=== PATIENT | male | born 1955 | race Caucasian/White ===

== ENCOUNTER → 2018-12-11 | Outpatient (CLI) | payer MEDICARE, OTHER ==
[2015-09-22 21:50] VITALS: BP 115/58
[~2018-12-11] MED LIST: ASPI325T8 PO; ATOR40TA59 PO; CLOP75TA57 PO; EZET1TAB35 PO; FURO40TA4 PO; LANS30CA PO; LISI-338 PO; POTA20TA82 PO; RANO500T2 PO; REGADENOSON 0.4 MG/5 ML DISP.SYRIN. IV ONE; SOTA80TA48 PO
--- NOTE | 2018-12-11 11:36 | CARD ---
MR#: [id number] Date of Study: 12/11/2018 Ordering Physician: PAULINA BAGLEY, Referring Physician: PAULINA BAGLEY, Tech: Jazlyn Parham LAVERNE APPROVED REPORT EXAM: Two-dimensional and M-mode echocardiogram with Doppler and color Doppler. Other Information Quality : GoodHR: 60bpm Rhythm : NSR INDICATION Cardiomyopathy 2D DIMENSIONS RVDd3.0 (2.9-3.5cm)Left Atrium(2D)5.5 (1.6-4.0cm) IVSd1.3 (0.7-1.1cm)Aortic Root(2D)3.4 (2.0-3.7cm) LVDd7.2 (3.9-5.9cm)LVOT Diameter2.3 (1.8-2.4cm) PWd1.1 (0.7-1.1cm)LVDs6.6 (2.5-4.0cm) FS (%) 8.3 %SV48.4 ml LVEF(%)17.8 (>50%) M-Mode DIMENSIONS Left Atrium(MM)5.86 (2.5-4.0cm)Aortic Root3.60 (2.2-3.7cm) Aortic Valve AoV Peak Dominik.141.6cm/sAoV VTI28.6cm AO Peak GR.8.0mmHgLVOT Peak Dominik.85.2cm/s AO Mean GR.4mmHgAVA (VMAX)2.45cm2 MINERVA (VTI)2.03pj4AI P 1/2 Dfsy397nk Mitral Valve MV E Mpjtjnid62.2cm/sMV DECEL FRGW395kz MV A Vmqtcdej53.5cm/sE/A Ratio1.3 MV A Egyqusbp400jo Pulmonary Valve PV Peak Ktdxrxbe71.2cm/s Pulmonary Vein S1 Mrkjewkg25.0cm/sD2 Jsyihzou22.2cm/s PVa rkfhoyjm45pbfz LEFT VENTRICLE The Left Ventricle is moderately dilated. There is mild concentric left ventricular hypertrophy. The left ventricular systolic function is severely impaired. The Ejection Fraction is 20-25%. There is gl obal hypokinesis of the left ventricle. RIGHT VENTRICLE The right ventricle is normal size. There is normal right ventricular wall thickness. Systolic functi on is mildly reduced. ATRIA The left atrium is moderately dilated. The right atrium is moderately dilated. The interatrial septum is intact with no evidence for an atrial septal defect or patent foramen ovale as noted on 2-D or Do ppler imaging. AORTIC VALVE The aortic valve is normal in structure and function. The aortic valve is trileaflet. Doppler and Col or Flow revealed mild to moderate aortic regurgitation. There is no significant aortic valvular steno sis. MITRAL VALVE The mitral valve is normal in structure and function. There is no evidence of mitral valve prolapse. There is no mitral valve stenosis. Doppler and Color-flow revealed mild mitral regurgitation. TRICUSPID VALVE The tricuspid valve is normal in structure and function. Doppler and Color Flow revealed trace tricus pid valve regurgitation. There is no tricuspid valve prolapse or vegetation. There is no tricuspid va lve stenosis. PULMONIC VALVE Pulmonic valve is not well visualized. GREAT VESSELS The aortic root is normal in size. The ascending aorta is normal in size. PERICARDIAL EFFUSION There is no evidence of significant pericardial effusion. Critical Notification Critical Value: No <Conclusion> The left ventricular systolic function is severely impaired. The Ejection Fraction is 20-25%. The left atrium is moderately dilated. Mild to moderate aortic regurgitation. Mild mitral regurgitation. Trace tricuspid valve regurgitation. There is no evidence of significant pericardial effusion. Signed by : Joey Artis, Electronically Approved : 12/11/2018 11:34:07
--- NOTE | 2018-12-11 14:17 | RAD ---
MR#: [id number] Date of Study: 12/11/2018 Ordering Physician: PAULINA TELLES, Referring Physician: HARLEY RENTERIA Tech: RT Alex (R) (N) APPROVED REPORT Test Type: Pharmacological Stress Nurse/Tech: Carol Kaufman RN Test Indications: ischemic cardiomyopathy Cardiac History: Hypertension,smoker,CABG x3 in ,pacemaker Medications: See Electronic Medical Record Medical History: See Electronic Medical Record Resting ECG: Paced rhythm Resting Heart Rate: 68 bpm Resting Blood Pressure: 110/63mmHg Pretest Chest Pain: No chest pain Nurse/Tech Notes S1,S2-pacemaker. Lungs diminished throughout. Consent: The procedure was explained to the patient in lay terms. Informed consent was witnessed. Miguelito eout was entered into [email or web address]. History and Stress Test performed by RT Len (R) (N) Pharm. Details Pharmacologic stress testing was performed using 0.4mg per 5ml of regadenoson given intravenously ove r 7-10 seconds. Stress Symptoms Dizziness POST EXERCISE Reason for Termination: Infusion complete Target HR: No Max HR: 88 bpm Max Blood Pressure: 117/47mmHg Blood Pressure response to exercise: Normal blood pressure response during stress. Heart Rate response to exercise: WNL Chest Pain: No. Arrhythmia: No. ST Change: No. INTERPRETATION Stress EKG Conclusion: A-paced with underlying IVCD in a LBBB format. Imaging Protocol IMAGE PROTOCOL: Rest Tc-99m/stress Tc-99m 1 day Rest: Stress: Viability: Radiopharm.Tc99m LxsfksmtzJz55k Sestamibi Dose9.1mCi 33.2mCi Duration 13min. 13min. Img Date 12/11/2018 12/11/2018 Inj-Img Cwpt59gqx. 60min. Rest Admin Site:IV - Right AntecubitalAdministrator:EVERETT Fitzpatrick, ARRT (R)(N) Stress Admin Site: IV - Right AntecubitalAdministrator: RT Jaciel HarringtonR)(N) STRESS DATA End Diast. Vol.314.0mlLVEDV index VCE680.0ml End Syst. Vol.260.0mlLVESV index QIZ910.0ml Myocardial Xkuo072.0gEject. Fwsuoaae28.0% Stress Scores Regional WT3.00Summed WT49.00 Regional WM3.00Summed WM48.00 LV Perfusion There is a large sized, severe in intensity FIXED mid to distal septal, anterior, apical defect sugge stive of prior infarct in the LAD territory There is a large szied, severe in intensity FIXED basal to distal inferior wall defect suggestive of prior infarct. Wall Motion Severe LV dysfunction. EF 17%. LV Perf. Quant 17 Seg. SSS30.00 17 Seg. SRS35.00 17 Seg. SDS1.00 Stress Defect Extent (% LAD)60.00Rest Defect Extent (% LAD)55.60Rev. Defect Extent (% LAD)6.30 Stress Defect Extent (% LCX) 32.50Rest Defect Extent (% LCX)43.80Rev. Defect Extent (% LCX)0.00 Stress Defect Extent (% RCA)57.80Rest Defect Extent (% RCA)77.80Rev. Defect Extent (% RCA)0.00 Stress Defect Extent (% EDITA)53.90Rest Defect Extent (% EDITA)58.90Rev. Defect Extent (% EDITA)2.20 Other Information Quality:Average Risk Assessment: High Risk Conclusion 1. Non-diagnostic baseline EKG due to atrial pacing and underlying LBBB morphology 2. Large prior anterior/inferior defects, FIXED. No ischemia. 3. Severe LV dysfunction. EF 17% 4. High risk for future CV events. Signed by : Paulina Telles, Electronically Approved : 12/11/2018 14:15:00
== END | disposition home or self-care (01) ==
LOC: NM 08:27
PROVIDERS: ATTEND Internal Medicine Cardiovascular Disease
DX: I08.0 Rheumatic disorders of both mitral and aortic valves (principal); I25.5 Ischemic cardiomyopathy; I44.7 Left bundle-branch block, unspecified; I11.9 Hypertensive heart disease without heart failure; F17.200 Nicotine dependence, unspecified, uncomplicated; Z95.1 Presence of aortocoronary bypass graft; Z95.0 Presence of cardiac pacemaker
CPT/HCPCS: 78452; 93017; 93306; 96374; A9500; J2785

== ENCOUNTER 2020-11-14 11:12 | Inpatient (IN) | payer MEDICARE ==
[~2020-11-14] VITALS: Ht 170.2 cm; Wt 97.9 kg
[~2020-11-14 11:12] MED LIST changes: +AMIO200T6 PO; +AMIO400T5 PO; +ASPI-630 PO; +FURO-68 PO; -LISI-338 PO; +LISI-517 PO; +METO-239 PO; +METO-247 PO; +POTA10TA12 PO; +POTA20TA4 PO; -POTA20TA82 PO; -REGADENOSON 0.4 MG/5 ML DISP.SYRIN. IV ONE; +SACU1TAB7 PO; +SPIR25TA5 PO
[2020-11-14 11:46] LABS: BASO # 0.1 x10^3/uL (0.0-0.2); BASO % 1 % (0-3); EOS # 0.3 x10^3/uL (0.0-0.7); EOS % 5 % (0-3); HEMATOCRIT 44.6 % (39.0-53.0); HEMOGLOBIN 14.7 g/dL (13.0-17.5); LYMPH # 1.6 x10^3/uL (1.0-4.8); LYMPH % 25 % (24-48); MEAN CORPUSCULAR HEMOGLOBIN 31 pg (25-35); MEAN CORPUSCULAR HGB CONC 33 g/dL (31-37); MEAN CORPUSCULAR VOLUME 93 fL (79-100); MONO # 0.8 x10^3/uL (0.0-1.1); MONO % 12 % (0-9); NEUT # 3.7 x10^3/uL (1.8-7.7); NEUT % 56 % (31-73); PLATELET COUNT 222 x10^3/uL (140-400); RED BLOOD COUNT 4.78 x10^6/uL (4.30-5.70); RED CELL DISTRIBUTION WIDTH 15.4 % (11.5-14.5); WHITE BLOOD COUNT 6.5 x10^3/uL (4.0-11.0)
--- NOTE | 2020-11-14 11:50 | RAD ---
EXAM: Chest, single view. HISTORY: Palpitations. COMPARISON: 09/25/2020 FINDINGS: A frontal view of the chest is obtained. There is diffuse increased interstitial opacity. T here is no consolidation, pleural effusion or pneumothorax. There is a stable prominent cardiac silho uette. There are median sternotomy changes. There is a cardiac pacemaker defibrillator unchanged in p osition. IMPRESSION: Stable diffuse interstitial prominence likely due to interstitial infiltrate. Electronically signed by: Mandie Aragon MD (11/14/2020 11:47 AM) [facility]
[2020-11-14 12:04] LABS: CALCIUM 9.3 mg/dL (8.5-10.1); CREATININE 1.5 mg/dL (0.7-1.3); GFR 46.7; POTASSIUM 4.5 mmol/L (3.5-5.1)
[2020-11-14 12:05] LABS: MAGNESIUM 2.2 mg/dL (1.8-2.4)
--- NOTE | 2020-11-14 13:31 | ED.ADGEN ---
Past Medical History Past Medical History: High Cholesterol, Heart Disease, Hypertension, [place] Past Surgical History: Coronary Bypass Surgery, Pacemaker Additional Past Surgical Histo: defibrilator Smoking Status: Current Every Day Smoker Alcohol Use: Occasionally Drug Use: None General Adult EDM: Chief Complaint: Palpitations HPI: HPI: Patient is a 65-year-old male who presents to the emergency room complaining of being shocked by his pacemaker. Patient states that afterwards he got really dizzy and he felt like he was going to get shocked again but did not. He felt fine prior to the shock. He follows with Dr. Elfego talley for his cardiac disease. This is happened to him 1 other time a month ago and he was admitted at that time and had a cath done that was normal. He has a follow-up appointment with cardiology next week. He denies any chest pain, shortness of breath, URI symptoms, fever, nausea, vomiting. He states his dizziness is better. Review of Systems: Review of Systems: Complete ROS is negative unless otherwise documented in HPI Current Medications: Current Medications Medications (Trade) Dose Ordered Sig/Angelo Start Time Stop Time Status Last Admin Dose Admin Amiodarone HCl (Cordarone) 400 mg 1X ONCE 11/14/20 14:45 11/14/20 14:46 11/14/20 14:26 400 MG Allergies: Allergies: Allergies Coded Allergies Type Severity Reaction Last Updated Verified No Known Drug Allergies 02/20/14 No Physical Exam: PE: General: Awake, alert, NAD. Well Nourished, well hydrated. Cooperative HEENT: Atraumatic, EOMI, PERRL, airway patent, moist oral mucosa Neck: Supple, trachea midline Respiratory: CTA bilaterally, normal effort, no wheezing/crackles CV: RRR, no murmur, cap refill <2 GI: Soft, nondistended, nontender, no masses MSK: No obvious deformities Skin: Warm, dry, intact Neuro: A&O x3, speech NL, sensory and motor grossly intact, no focal deficits Psych: Normal affect, normal mood, not suicidal or homicidal Current Patient Data: Labs: Laboratory Tests Test 11/14/20 11:11 White Blood Count 6.5 x10^3/uL (4.0-11.0) Red Blood Count 4.78 x10^6/uL (4.30-5.70) Hemoglobin 14.7 g/dL (13.0-17.5) Hematocrit 44.6 % (39.0-53.0) Mean Corpuscular Volume 93 fL (79-100) Mean Corpuscular Hemoglobin 31 pg (25-35) Mean Corpuscular Hemoglobin Concent 33 g/dL (31-37) Red Cell Distribution Width 15.4 % (11.5-14.5) H Platelet Count 222 x10^3/uL (140-400) Neutrophils (%) (Auto) 56 % (31-73) Lymphocytes (%) (Auto) 25 % (24-48) Monocytes (%) (Auto) 12 % (0-9) H Eosinophils (%) (Auto) 5 % (0-3) H Basophils (%) (Auto) 1 % (0-3) Neutrophils # (Auto) 3.7 x10^3/uL (1.8-7.7) Lymphocytes # (Auto) 1.6 x10^3/uL (1.0-4.8) Monocytes # (Auto) 0.8 x10^3/uL (0.0-1.1) Eosinophils # (Auto) 0.3 x10^3/uL (0.0-0.7) Basophils # (Auto) 0.1 x10^3/uL (0.0-0.2) Sodium Level 138 mmol/L (136-145) Potassium Level 4.5 mmol/L (3.5-5.1) Chloride Level 103 mmol/L (98-107) Carbon Dioxide Level 29 mmol/L (21-32) Anion Gap 6 (6-14) Blood Urea Nitrogen 22 mg/dL (8-26) Creatinine 1.5 mg/dL (0.7-1.3) H Estimated GFR (Cockcroft-Gault) 46.7 Glucose Level 100 mg/dL (70-99) H Calcium Level 9.3 mg/dL (8.5-10.1) Magnesium Level 2.2 mg/dL (1.8-2.4) Troponin I Quantitative < 0.017 ng/mL (0.000-0.055) Laboratory Tests 11/14/20 11:11 Laboratory Tests 11/14/20 11:11 Vital Signs: Vital Signs Date Time Temp Pulse Resp B/P (MAP) Pulse Ox O2 Delivery O2 Flow Rate FiO2 11/14/20 14:26 75 97/52 11/14/20 11:14 97.8 21 93 Room Air 97.8 EKG: EKG: [] Heart Score: Risk Factors: Risk Factors: DM, Current or recent (<one month) smoker, HTN, HLP, family history of CAD, obesity. Risk Scores: Score 0 - 3: 2.5% MACE over next 6 weeks - Discharge Home Score 4 - 6: 20.3% MACE over next 6 weeks - Admit for Clinical Observation Score 7 - 10: 72.7% MACE over next 6 weeks - Early Invasive Strategies Radiology/Procedures: Radiology/Procedures: [] Course & Med Decision Making: Course & Med Decision Making Pertinent Labs and Imaging studies reviewed. (See chart for details) Patient is a 65-year-old male who presents to the emergency room after being shocked by his pacemaker. Pacemaker was interrogated and patient had an episode of ventricular tachycardia which is similar to what brought him in in September. Lab work is unremarkable. I discussed the case with Dr Garcia and Dr Calixto. At this time patient will be given loading dose of amiodarone and admitted to the [facility]. Dragon Disclaimer: Dragon Disclaimer: This electronic medical record was generated, in whole or in part, using a voice recognition dictation system. Departure Departure Impression: Primary Impression: Ventricular tachycardia Referrals: MILI GARCIA MD (PCP) SHANNAN DIEHL MD Nov 14, 2020 13:31
[2020-11-14] MEDS ORDERED: AMIODARONE HCL 200 MG TABLET. PO ONE (14:45)
--- NOTE | 2020-11-14 17:37 | EKG ---
[facility] [address] [place] [address] Test Date: 2020-11-14 Test Time: 11:19:54 Pat Name: ADITHYA JARAMILLO Department: Room: ED HOLD 23 Gender: M Liner Reroll Tender: : 1955 Requested By: SHANNAN DIEHL Order Number: [id number] Reading MD: Joey Artis Measurements Intervals [place] Rate: 87 P: [place]: QRS: 64 QRSD: 132 T: -68 QT: 398 QTc: 480 Interpretive Statements ATRIAL PACED RHYTHM VENTRICULAR PREMATURE COMPLEX(ES) NON SPECIFIC INTRAVENTRICULAR BLOCK ABNORMAL ECG Electronically Signed On 11-18-2020 14:04:46 TECHNICAL INSTRUCTOR COURSE DEVELOPER by Joey Artis
[2020-11-14 18:24] VITALS: BP 103/55
[2020-11-14] MEDS ORDERED: FURO40TA4 PO (20:41)
[2020-11-14] MEDS ORDERED: POTA20TA4 PO (20:41)
[2020-11-14 22:20] VITALS: BP 110/54
[2020-11-14] MEDS: AMIODARONE HCL 200 MG TABLET. PO SCH (23:21)
[2020-11-15 03:31] VITALS: BP 88/37
[2020-11-15 07:00] VITALS: BP 97/55
[2020-11-15] MEDS: AMIODARONE HCL 200 MG TABLET. PO SCH ×2 (08:43→21:11)
[2020-11-15 11:00] VITALS: BP 87/41
[2020-11-15] MEDS: SPIRONOLACTONE 25 MG TABLET PO SCH (13:00)
[2020-11-15] MEDS: RANOLAZINE 500 MG TAB.ER.12H PO SCH ×2 (13:00→21:09)
[2020-11-15] MEDS: METOPROLOL SUCC 24HR ER 25 MG TAB.ER.24H. PO SCH (13:00)
[2020-11-15] MEDS ORDERED: ATORVASTATIN CALCIUM 40 MG TABLET. PO SCH (13:00)
[2020-11-15] MEDS: POTASSIUM CHLORIDE 20 MEQ TABLET.ER. PO SCH (13:00)
[2020-11-15] MEDS: SACUBITRIL/VALSARTAN 49/51MG TABLET. PO SCH ×2 (13:00→21:10)
[2020-11-15] MEDS: PANTOPRAZOLE 40 MG TABLET.DR. PO SCH (13:31)
[2020-11-15] MEDS: CLOPIDOGREL BISULFATE 75 MG TABLET PO SCH (13:31)
[2020-11-15] MEDS: ASPIRIN CHEWABLE 81 MG TABLET. PO SCH (13:32)
--- NOTE | 2020-11-15 13:56 | HP ---
ADMIT DATE: 11/15/2020 CHIEF COMPLAINT AND HISTORY OF PRESENT ILLNESS: This 65-year-old white male is well known to me in followup in the office. The patient presented to the Emergency Room after his defibrillator went off. He was feeling dizzy and remembers getting shocked. He feels like he was feeling fine prior to the shock other than the dizziness. He... DICTATION ENDS HERE MILI BELTRAN MD DR: TARA/sharri JOB#: [id number] / [id number]
[2020-11-15] MEDS: FUROSEMIDE 40 MG TABLET. PO SCH (14:00)
[2020-11-15 15:00] VITALS: BP 108/66
--- NOTE | 2020-11-15 15:03 | HP ---
ADMIT DATE: 11/15/2020 CHIEF COMPLAINT AND HISTORY OF PRESENT ILLNESS: This 65-year-old white male admitted through the Emergency Room after a defibrillator discharge and he was feeling dizzy. This has happened recently where he had been hospitalized, had a heart cath showing no amenable treatment at that time. PAST MEDICAL HISTORY: Remarkable for ischemic cardiomyopathy, history of V-tach, hyperlipidemia, atherosclerotic heart disease, hypertension, [place]. He has a pacemaker as well as a defibrillator. He has had coronary artery bypass surgery. MEDICATIONS: Brought with the patient, listed on the computer and have been addressed. ALLERGIES: There is no drug allergies. SOCIAL HISTORY: He is a current every day smoker. Has alcohol on occasion. Denies drug use. Lives at home with his . FAMILY HISTORY: Noncontributory. REVIEW OF SYSTEMS: Remarkable for him feeling fairly close to his baseline leading up to this. Denies any significant symptoms of angina ____ on a regular basis. PHYSICAL EXAMINATION: GENERAL: He is a well-developed, well-nourished white male in no acute distress. is at the bedside. VITAL SIGNS: Stable. He is afebrile. Blood pressure is on the low side. This is his baseline. HEAD, EYES, EARS, NOSE AND THROAT: Unremarkable. NECK: Supple without adenopathy or thyromegaly. CHEST: Clear to auscultation and percussion. HEART: Regular rate and rhythm without S3, S4 or murmur. ABDOMEN: Soft, nontender, without hepatosplenomegaly or masses. EXTREMITIES: Without cyanosis, clubbing, edema. NEUROLOGIC: He is intact. LABORATORY DATA: Initial labs included CBC that is unremarkable. He has a BMP showing a creatinine of 1.5. Troponin is negative. Electrolytes including magnesium were all within normal limits. Interrogation of his defibrillator shows that this was an episode of V-tach and he has actually had 2-3 others recently that he was unaware of. IMPRESSION: 1. Ventricular tachycardia with appropriate defibrillator discharge. 2. Ischemic cardiomyopathy. 3. Other problems listed above. PLAN: The patient has been admitted. He will be watched on Telemetry. Cardiology has been consulted to give suggestions regarding antiarrhythmic therapy and the patient will be monitored, managed and treated appropriately. MLII A. APPL, MD DR: TARA/sharri JOB#: [id number] / [id number]
--- NOTE | 2020-11-15 16:30 | PDOC2 ---
CONSULT Date of Consult Date of Consult DATE: 11/15/20 TIME: 16:21 Reason for Consult Reason for Consult: Ventricular tachycardia Referring Physician Referring Physician: Dr. Garcia Identification/Chief Complaint Chief Complaint Discharges of his ICD Source Source: Chart review, Patient History of Present Illness Reason for Visit: The patient is a 65-year-old male with a history of an ischemic cardiomyopathy and an implantable defibrillator. He came to the emergency room the last evening due to recurrent episodes of discharges from his ICD. Initial in terrogation showed several discharges over the past 3 days. The patient reports mild dizziness but no episodes of syncope or near syncope. He was admitted to the hospital in September for similar episodes. A cardiac catheterization at that time showed three-vessel coronary artery disease. 2 of his 3 grafts were patent including a ALEXANDER graft to the LAD and a radial graft to the LP L. A previously placed vein graft to the right coronary was occluded. His ejection fraction was decreased at 20%. At that time he was started on amiodarone. He has done relatively well for 3 to 4 weeks but as noted above has had recurrence of his ventricular tachycardia. He denies chest pain other than the discomfort of the discharges. He denies shortness of breath. After discussion with the ER doctors last night his amiodarone was increased to 400 mg twice daily. Past Medical History Cardiovascular: AFIB, CAD, CHF, HTN, Hyperlipidemia, Other Pulmonary: COPD CENTRAL NERVOUS SYSTEM: Other Musculoskeletal: Osteoarthritis Past Surgical History Past Surgical History: CABG, Other (ICD placement.) Family History Family History: Heart Disease Social History <1 pack per day ALCOHOL: occassional Drugs: None Lives: with Family Current Problem List Problem List Problems Medical Problems: (1) Ventricular tachycardia Status: Acute Current Medications Current Medications Current Medications Amiodarone HCl (Cordarone) 400 mg 1X ONCE PO Last administered on 11/14/20at 14:26; Start 11/14/20 at 14:45; Stop 11/14/20 at 14:46; Status DC Amiodarone HCl (Cordarone) 400 mg BID PO Last administered on 11/15/20at 08:43; Start 11/14/20 at 23:00 Aspirin (Aspirin Chewable) 81 mg DAILY PO Last administered on 11/15/20at 13:32; Start 11/15/20 at 13:00 Atorvastatin Calcium (Lipitor) 80 mg DAILY PO ; Start 11/15/20 at 13:00; Stop 11/15/20 at 13:54; Status DC Clopidogrel Bisulfate (Plavix) 75 mg DAILY PO Last administered on 11/15/20at 13:31; Start 11/15/20 at 13:00 Furosemide (Lasix) 40 mg BID92 PO ; Start 11/15/20 at 14:00 Metoprolol Succinate (Toprol Xl) 25 mg DAILY PO ; Start 11/15/20 at 13:00 Potassium Chloride (Klor-Con) 20 meq DAILY PO ; Start 11/15/20 at 13:00 Ranolazine (Ranexa) 500 mg BID PO ; Start 11/15/20 at 13:00 Sacubitril/ Valsartan (Entresto 49 Mg-51 Mg) 1 tab BID PO ; Start 11/15/20 at 13:00 Spironolactone (Aldactone) 12.5 mg DAILY PO ; Start 11/15/20 at 13:00 Pantoprazole Sodium (Protonix) 40 mg DAILYAC PO Last administered on 11/15/20at 13:31; Start 11/15/20 at 13:00 Atorvastatin Calcium (Lipitor) 80 mg HS PO ; Start 11/15/20 at 21:00 Active Scripts Active Amiodarone Hcl 200 Mg Tablet 400 Mg PO BID 7 Days twice a day for 7 days then change to once a day therafter Reported Furosemide 40 Mg Tablet 40 Mg PO BID Klor-Con M20 (Potassium Chloride) 20 Meq Tab.er.prt 1 Tab PO DAILY 30 Days Spironolactone 25 Mg Tablet 0.5 Tab PO DAILY Entresto 49 mg-51 mg Tablet (Sacubitril/Valsartan) 1 Each Tablet 1 Each PO BID Ranexa (Ranolazine) 500 Mg Tab.er.12h 1 Tab PO BID 30 Days Metoprolol Succinate ( Xl ) (Metoprolol Succinate) 25 Mg Tab.er.24h 1 Tab PO DAILY Atorvastatin Calcium 40 Mg Tablet 2 Tab PO DAILY Aspirin 81 Mg Tab.chew 1 Tab PO DAILY Lansoprazole 30 Mg Capsule.dr 30 Mg PO DAILY LAST DOSE GIVEN: DATE: 09-22-15 TIME: 9 AM NEXT DOSE DUE: DATE: 09-23-15 TIME: 9 AM Plavix (Clopidogrel Bisulfate) 75 Mg Tablet 75 Mg PO DAILY LAST DOSE GIVEN: DATE: 09-22-15 TIME: 9 AM NEXT DOSE DUE: DATE: 09-23-15 TIME: 9 AM Allergies Allergies: Coded Allergies: No Known Drug Allergies (Unverified , 02/20/14) ROS General: YES: Fatigue Physical Exam General: No acute distress HEENT: Atraumatic Lungs: Clear to auscultation Heart: Regular rate Abdomen: Normal bowel sounds Vitals VITALS Vital Signs Date Time Temp Pulse Resp B/P (MAP) Pulse Ox O2 Delivery O2 Flow Rate FiO2 11/15/20 15:00 97.3 69 18 108/66 (80) 93 Room Air 97.3 Labs Labs Laboratory Tests Test 11/14/20 11:11 White Blood Count 6.5 x10^3/uL (4.0-11.0) Red Blood Count 4.78 x10^6/uL (4.30-5.70) Hemoglobin 14.7 g/dL (13.0-17.5) Hematocrit 44.6 % (39.0-53.0) Mean Corpuscular Volume 93 fL (79-100) Mean Corpuscular Hemoglobin 31 pg (25-35) Mean Corpuscular Hemoglobin Concent 33 g/dL (31-37) Red Cell Distribution Width 15.4 % (11.5-14.5) Platelet Count 222 x10^3/uL (140-400) Neutrophils (%) (Auto) 56 % (31-73) Lymphocytes (%) (Auto) 25 % (24-48) Monocytes (%) (Auto) 12 % (0-9) Eosinophils (%) (Auto) 5 % (0-3) Basophils (%) (Auto) 1 % (0-3) Neutrophils # (Auto) 3.7 x10^3/uL (1.8-7.7) Lymphocytes # (Auto) 1.6 x10^3/uL (1.0-4.8) Monocytes # (Auto) 0.8 x10^3/uL (0.0-1.1) Eosinophils # (Auto) 0.3 x10^3/uL (0.0-0.7) Basophils # (Auto) 0.1 x10^3/uL (0.0-0.2) Sodium Level 138 mmol/L (136-145) Potassium Level 4.5 mmol/L (3.5-5.1) Chloride Level 103 mmol/L (98-107) Carbon Dioxide Level 29 mmol/L (21-32) Anion Gap 6 (6-14) Blood Urea Nitrogen 22 mg/dL (8-26) Creatinine 1.5 mg/dL (0.7-1.3) Estimated GFR (Cockcroft-Gault) 46.7 Glucose Level 100 mg/dL (70-99) Calcium Level 9.3 mg/dL (8.5-10.1) Magnesium Level 2.2 mg/dL (1.8-2.4) Troponin I Quantitative < 0.017 ng/mL (0.000-0.055) Images Images Chest x-ray shows stable diffuse interstitial prominences. Assessment/Plan Assessment/Plan 1. Recurrent ventricular tachycardia. Patient has severe ischemic cardiomyopathy with an ejection fraction of 20%. Recent heart catheterization showed stable three-vessel disease and to 3 grafts patent. The catheterization was basically unchanged from last year. The patient has an ICD in place and has had recurrent episodes of VT. Potassium and magnesium levels are normal. On his admission last month he was started on amiodarone and at this time we will increase his dose. We will consider EP evaluation for possible ablation as was previously discussed with the patient. 2. Coronary artery disease. Status post bypass surgery. Catheterization in September as noted above. Continuing medical treatment. No chest pain. No elevation in troponin. 3. Ischemic cardiomyopathy as noted above. Continuing baseline medications. 4. Hyperlipidemia. Will recheck lab. Continue meds. 5. Hypertension. Under reasonable control. Continue present medical treatment. 6. COPD with continued tobacco use. This was discussed with the patient. Thank you for allowing us to participate in the care of your patient.. DIONTE SESAY MD Nov 15, 2020 16:30
[2020-11-15 19:40] VITALS: BP 111/56
[2020-11-15] MEDS: ATORVASTATIN CALCIUM 40 MG TABLET. PO SCH (21:10)
[2020-11-15 23:10] VITALS: BP 98/47
[2020-11-16 03:35] VITALS: BP 100/48
[2020-11-16 07:00] VITALS: BP 91/44
[2020-11-16] MEDS: SPIRONOLACTONE 25 MG TABLET PO SCH (09:00)
[2020-11-16] MEDS: ASPIRIN CHEWABLE 81 MG TABLET. PO SCH (09:00)
[2020-11-16] MEDS: CLOPIDOGREL BISULFATE 75 MG TABLET PO SCH (09:00)
[2020-11-16] MEDS: FUROSEMIDE 40 MG TABLET. PO SCH ×2 (09:01→13:52)
[2020-11-16] MEDS: RANOLAZINE 500 MG TAB.ER.12H PO SCH ×2 (09:01→20:59)
[2020-11-16] MEDS: SACUBITRIL/VALSARTAN 49/51MG TABLET. PO SCH ×2 (09:02→20:59)
[2020-11-16] MEDS: PANTOPRAZOLE 40 MG TABLET.DR. PO SCH (09:02)
[2020-11-16] MEDS: POTASSIUM CHLORIDE 20 MEQ TABLET.ER. PO SCH (09:02)
[2020-11-16] MEDS: METOPROLOL SUCC 24HR ER 25 MG TAB.ER.24H. PO SCH (09:03)
[2020-11-16] MEDS: AMIODARONE HCL 200 MG TABLET. PO SCH ×2 (09:03→20:59)
[2020-11-16 11:00] VITALS: BP 106/56
--- NOTE | 2020-11-16 13:40 | PN ---
DATE: 11/16/2020 LOCATION: He is in Room 209. SUBJECTIVE: The patient is awake, alert, sitting in the chair. Denies any untoward symptoms. Nursing has not reported any significant arrhythmias. He has family visiting. OBJECTIVE: VITAL SIGNS: Stable. He is afebrile. Blood pressures are on the low side, which is his baseline. CHEST: Clear. HEART: Regular. ABDOMEN: Benign. He does tell me that Cardiology has requested he stay till at least the beginning of the week, so no chance of discharge today. IMPRESSION: 1. Ventricular tachycardia with resuscitation by implantable defibrillator. 2. Ischemic cardiomyopathy. 3. Atherosclerotic heart disease. PLAN: Continue present therapy with antiarrhythmics per Cardiology with discharge as they feel safe in the future. He did have a heart catheterization in the recent past that showed minimal disease and three-open bypasss from prior CABG. MILI BELTRAN MD DR: TARA/sharri JOB#: [id number] / [id number]
[2020-11-16 15:00] VITALS: BP 107/51
--- NOTE | 2020-11-16 15:25 | PDOC ---
PROGRESS NOTES Date of Service DATE: 11/16/20 TIME: 15:23 Subjective Subjective Patient seen and examined Objective Objective Vital Signs Date Time Temp Pulse Resp B/P (MAP) Pulse Ox O2 Delivery O2 Flow Rate FiO2 11/16/20 11:00 97.9 63 18 106/56 (73) 95 Room Air 97.9 Intake and Output 11/16/20 07:00 Intake Total 650 ml Balance 650 ml Intake Oral 650 ml Physical Exam Abdomen: Normal bowel sounds Heart: Regular rate General: Alert Lungs: Clear to auscultation Assessment Assessment Problems Medical Problems: (1) Ventricular tachycardia Status: Acute 1. Recurrent ventricular tachycardia. Patient has severe ischemic cardiomyopathy with an ejection fraction of 20%. Recent heart catheterization showed stable three-vessel disease and to 3 grafts patent. The catheterization was basically unchanged from last year. The patient has an ICD in place and has had recurrent episodes of VT. Potassium and magnesium levels are normal. On his admission last month he was started on amiodarone and at this time we will increase his dose. We will consider EP evaluation for possible ablation as was previously discussed with the patient. The patient has been stable overnight. We will continue present treatments and increase activity. 2. Coronary artery disease. Status post bypass surgery. Catheterization in September as noted above. Continuing medical treatment. No chest pain. No elevation in troponin. 3. Ischemic cardiomyopathy as noted above. Continuing baseline medications. 4. Hyperlipidemia. Will recheck lab. Continue meds. 5. Hypertension. Under reasonable control. Continue present medical treatment. 6. COPD with continued tobacco use. This was discussed with the patient. Comment Review of Relevant I have reviewed the following items noble (where applicable) has been applied. Medications Current Medications Amiodarone HCl (Cordarone) 400 mg 1X ONCE PO Last administered on 11/14/20at 14:26; Start 11/14/20 at 14:45; Stop 11/14/20 at 14:46; Status DC Amiodarone HCl (Cordarone) 400 mg BID PO Last administered on 11/16/20at 09:03; Start 11/14/20 at 23:00 Aspirin (Aspirin Chewable) 81 mg DAILY PO Last administered on 11/16/20at 09:00; Start 11/15/20 at 13:00 Atorvastatin Calcium (Lipitor) 80 mg DAILY PO ; Start 11/15/20 at 13:00; Stop 11/15/20 at 13:54; Status DC Clopidogrel Bisulfate (Plavix) 75 mg DAILY PO Last administered on 11/16/20at 09:00; Start 11/15/20 at 13:00 Furosemide (Lasix) 40 mg BID92 PO Last administered on 11/16/20at 09:01; Start 11/15/20 at 14:00 Metoprolol Succinate (Toprol Xl) 25 mg DAILY PO Last administered on 11/16/20at 09:03; Start 11/15/20 at 13:00 Potassium Chloride (Klor-Con) 20 meq DAILY PO Last administered on 11/16/20at 09:02; Start 11/15/20 at 13:00 Ranolazine (Ranexa) 500 mg BID PO Last administered on 11/16/20at 09:01; Start 11/15/20 at 13:00 Sacubitril/ Valsartan (Entresto 49 Mg-51 Mg) 1 tab BID PO Last administered on 11/16/20at 09:02; Start 11/15/20 at 13:00 Spironolactone (Aldactone) 12.5 mg DAILY PO ; Start 11/15/20 at 13:00 Pantoprazole Sodium (Protonix) 40 mg DAILYAC PO Last administered on 11/16/20at 09:02; Start 11/15/20 at 13:00 Atorvastatin Calcium (Lipitor) 80 mg HS PO Last administered on 11/15/20at 21:10; Start 11/15/20 at 21:00 Active Scripts Active Amiodarone Hcl 200 Mg Tablet 400 Mg PO BID 7 Days twice a day for 7 days then change to once a day therafter Reported Furosemide 40 Mg Tablet 40 Mg PO BID Klor-Con M20 (Potassium Chloride) 20 Meq Tab.er.prt 1 Tab PO DAILY 30 Days Spironolactone 25 Mg Tablet 0.5 Tab PO DAILY Entresto 49 mg-51 mg Tablet (Sacubitril/Valsartan) 1 Each Tablet 1 Each PO BID Ranexa (Ranolazine) 500 Mg Tab.er.12h 1 Tab PO BID 30 Days Metoprolol Succinate ( Xl ) (Metoprolol Succinate) 25 Mg Tab.er.24h 1 Tab PO DAILY Atorvastatin Calcium 40 Mg Tablet 2 Tab PO DAILY Aspirin 81 Mg Tab.chew 1 Tab PO DAILY Lansoprazole 30 Mg Capsule.dr 30 Mg PO DAILY LAST DOSE GIVEN: DATE: 09-22-15 TIME: 9 AM NEXT DOSE DUE: DATE: 09-23-15 TIME: 9 AM Plavix (Clopidogrel Bisulfate) 75 Mg Tablet 75 Mg PO DAILY LAST DOSE GIVEN: DATE: 09-22-15 TIME: 9 AM NEXT DOSE DUE: DATE: 09-23-15 TIME: 9 AM Vitals/I & O Vital Sign - Last 24 Hours 11/15/20 11/15/20 11/15/20 11/15/20 19:40 20:00 21:09 21:10 Temp 97.7 97.7 Pulse 63 63 63 Resp 24 B/P (MAP) 111/56 (74) 111/56 111/56 Pulse Ox 90 O2 Delivery Room Air Room Air 11/15/20 11/15/20 11/16/20 11/16/20 21:11 23:10 03:35 07:00 Temp 97.7 97.5 97.1 97.7 97.5 97.1 Pulse 63 60 69 60 Resp 22 21 18 B/P (MAP) 111/56 98/47 (64) 100/48 (65) 91/44 (60) Pulse Ox 92 96 91 O2 Delivery Room Air Room Air Room Air 11/16/20 11/16/20 11/16/20 11/16/20 07:50 09:01 09:02 09:03 Pulse 69 69 69 B/P (MAP) 100/48 100/48 100/48 O2 Delivery Room Air 11/16/20 11/16/20 09:03 11:00 Temp 97.9 97.9 Pulse 69 63 Resp 18 B/P (MAP) 100/48 106/56 (73) Pulse Ox 95 O2 Delivery Room Air Intake and Output 11/15/20 11/15/20 11/16/20 15:00 23:00 07:00 Intake Total 50 ml 600 ml Balance 50 ml 600 ml Justifications for Admission Other Justification DIONTE SESAY MD Nov 16, 2020 15:25
[2020-11-16 19:40] VITALS: BP 108/55
[2020-11-16] MEDS: ATORVASTATIN CALCIUM 40 MG TABLET. PO SCH (20:58)
[2020-11-16 23:10] VITALS: BP 110/53
[2020-11-17 03:35] VITALS: BP 87/62
[2020-11-17 07:00] VITALS: BP 111/49
[2020-11-17] MEDS: AMIODARONE HCL 200 MG TABLET. PO SCH (08:56)
[2020-11-17] MEDS: SACUBITRIL/VALSARTAN 49/51MG TABLET. PO SCH (08:56)
[2020-11-17] MEDS: ASPIRIN CHEWABLE 81 MG TABLET. PO SCH (08:57)
[2020-11-17] MEDS: FUROSEMIDE 40 MG TABLET. PO SCH ×2 (08:57→14:00)
[2020-11-17] MEDS: RANOLAZINE 500 MG TAB.ER.12H PO SCH (08:57)
[2020-11-17] MEDS: METOPROLOL SUCC 24HR ER 25 MG TAB.ER.24H. PO SCH (08:57)
[2020-11-17] MEDS: POTASSIUM CHLORIDE 20 MEQ TABLET.ER. PO SCH (08:57)
[2020-11-17] MEDS: SPIRONOLACTONE 25 MG TABLET PO SCH (08:58)
[2020-11-17] MEDS: CLOPIDOGREL BISULFATE 75 MG TABLET PO SCH (08:58)
[2020-11-17] MEDS: PANTOPRAZOLE 40 MG TABLET.DR. PO SCH (08:58)
--- NOTE | 2020-11-17 09:24 | PN ---
DATE: 11/17/2020 LOCATION: He is in room 209. SUBJECTIVE: The patient is awake, alert, sitting in chair, is present. He has had no further symptoms other than a little bit of dizziness yesterday, which was not associated with any arrhythmia. OBJECTIVE: VITAL SIGNS: Stable. He is afebrile. Blood pressures are on the low side, which is his baseline. CHEST: Clear. HEART: Regular. ABDOMEN: Benign. IMPRESSION: 1. Ventricular tachycardia with resuscitation by implantable defibrillator. 2. Ischemic cardiomyopathy. 3. Atherosclerotic heart disease. PLAN: Continue present therapy with discharge per Cardiology when they feel safe. I see that they are planning on some outpatient, possibly electrophysiological studies to follow at discharge. MILI BELTRAN MD DR: TARA/sharri JOB#: [id number] / [id number]
[2020-11-17 11:00] VITALS: BP 98/55
--- NOTE | 2020-11-17 12:06 | NUR ---
SS following up with discharge planning. SS reviewed pt chart and discussed with pt RN. Pt is from home with spouse and is currently on room air. Cardiology following. Discharge plan is to home when medically ready. SS will continue to follow for discharge planning.
--- NOTE | 2020-11-17 12:39 | PDOC ---
RONEN DEJESUS APRN 11/17/20 1239: CARDIO Progress Notes Date and Time Date of Service 11/17/19 Time of Evaluation 1230 Subjective Subjective: No Chest Pain, No shortness of breath, No Palpitations Vitals Vitals Vital Signs Date Time Temp Pulse Resp B/P (MAP) Pulse Ox O2 Delivery O2 Flow Rate FiO2 11/17/20 11:00 97.9 63 20 98/55 (69) 95 Room Air 97.9 Weight Weight [ ] Input and Output Intake and Output Intake and Output 11/17/20 07:00 Intake Total 1080 ml Balance 1080 ml Intake Oral 1080 ml # Voids 6 Physical Exam HEENT: Neck Supple W Full Motion Chest: Symmetric LUNGS: Clear to Auscultation Heart: RRR (SR with A and intermittent AV pacing ) Abdomen: Soft N/T Extremities: No Edema Neurology: alert, oriented, follow commands Assessment Assessment 1. Recurrent ventricular tachycardia with AICD firing. K and Mg WNL. Amiodarone increased to 400mg BID 2. ICM s/p AICD; (Jonas) LVEF 20%. device interrogation shows episodes of ventricular tachycardia on 11/10, 11/10, and 11/14/20. Total of 4 shock therapies were delivered in that period of time. 3. Chronic systolic/diastolic CHF; clinically compensated 4. CAD s/p CABG. Recent LHC revealed 3VD with 2/3 bypass grafts patent, unchanged overall appearance compared to 2019 5. Hyperlipidemia; statin therapy 6. Hypertension; controlled 7. CKD 8. COPD with continued tobaccoism; reinforced cessation 9. PAFIB; SR with intermittent A-AV pacing. AT/AF burden < 1% since 09/25/20 Recommendations Continue Amiodarone at 400mg BID and metoprolol for VT suppression HF optimization with Entresto, Lasix, Toprol, and spironolactone. EP referral for evaluation of possible ablation therapy for recurrent VT. Appointment scheduled for next Tuesday in our clinic with Dr. Britney Payne to discharge from a CV standpoint Justicifation of Admission Dx: Justifications for Admission: Justification of Admission Dx: Yes PAULINA BAGLEY MD 11/18/20 0641: CARDIO Progress Notes Plan Plan Pt. seen and examined. Agree with above Sales Hunter note. Late entry for 11/17/2020 RONEN DEJESUS APRN Nov 17, 2020 12:39 PAULINA BAGLEY MD Nov 18, 2020 06:41
[2020-11-17 14:21] VITALS: BP 106/62
[2020-11-17 15:00] VITALS: BP 100/53
[2020-11-17] MEDS ORDERED: AMIO200T6 PO (15:11)
--- NOTE | 2020-11-17 17:08 | NUR ---
Discharge: Teaching verbal and written. Reviewed medications, followup, diet, ect. Patient verbalized understanding. Prescription sent to [facility] per Daylin Delcid. IV removed without complications, catheter tip in tact. All belongings with patient. patient assisted off of unit via wheelchair accompanied by friend
--- NOTE | 2020-11-17 23:26 | DS ---
DATE OF DISCHARGE: 11/17/2020 PRIMARY DIAGNOSIS: Ventricular tachycardia with defibrillator and resuscitation. ADDITIONAL DIAGNOSES: Ischemic cardiomyopathy, atherosclerotic heart disease. CHIEF COMPLAINT AND HISTORY OF PRESENT ILLNESS: This 65-year-old white male who presented to the Emergency Room after defibrillator discharged at home while feeling dizzy. This had happened recently where he had been hospitalized and had a cardiac catheterization showing ____ treatment. At that time, he was found to have ventricular tachycardia with appropriate discharge and admitted for cardiological evaluation. SUMMARY OF STAY: The patient was admitted. Cardiology saw him, they changed his dose of amiodarone. He was on cardiac monitoring without significant arrhythmias. During the stay, his electrolytes are all within normal limits. Cardiology felt that he should go to see electrophysiological data coordinator and they have set this up for 8 days following discharge prior to his discharge. The patient was felt ready for discharge and this was accomplished. DISPOSITION: The patient is discharged to home. DIET: Low sodium diet. ACTIVITY: As tolerated, office in 1 week. DISCHARGE MEDICATIONS: Listed on the med rec and have been addressed. MILI BELTRAN MD DR: TARA/sharri JOB#: [id number] / [id number]
--- NOTE | 2021-03-06 15:35 | PDOC1 ---
History & Physical: Date of Service: DOS: 11-15-2020 H&P: PATIENT: ADITHYA JARAMILLO ACCOUNT: [id number] : 1955 LOC: [address] [place] [address] AGE: 65 SEX: M STATUS: ADM IN LOCATION: [address] [place] [address] ADMIT DATE: 11/15/2020 CHIEF COMPLAINT AND HISTORY OF PRESENT ILLNESS: This 65-year-old white male admitted through the Emergency Room after a defibrillator discharge and he was feeling dizzy. This has happened recently where he had been hospitalized, had a heart cath showing no amenable treatment at that time. PAST MEDICAL HISTORY: Remarkable for ischemic cardiomyopathy, history of V-tach, hyperlipidemia, atherosclerotic heart disease, hypertension, [place]. He has a pacemaker as well as a defibrillator. He has had coronary artery bypass surgery. MEDICATIONS: Brought with the patient, listed on the computer and have been addressed. ALLERGIES: There is no drug allergies. SOCIAL HISTORY: He is a current every day smoker. Has alcohol on occasion. Denies drug use. Lives at home with his . FAMILY HISTORY: Noncontributory. REVIEW OF SYSTEMS: Remarkable for him feeling fairly close to his baseline leading up to this. Denies any significant symptoms of angina ____ on a regular basis. PHYSICAL EXAMINATION: GENERAL: He is a well-developed, well-nourished white male in no acute distress. is at the bedside. VITAL SIGNS: Stable. He is afebrile. Blood pressure is on the low side. This is his baseline. HEAD, EYES, EARS, NOSE AND THROAT: Unremarkable. NECK: Supple without adenopathy or thyromegaly. CHEST: Clear to auscultation and percussion. HEART: Regular rate and rhythm without S3, S4 or murmur. ABDOMEN: Soft, nontender, without hepatosplenomegaly or masses. EXTREMITIES: Without cyanosis, clubbing, edema. NEUROLOGIC: He is intact. LABORATORY DATA: Initial labs included CBC that is unremarkable. He has a BMP showing a creatinine of 1.5. Troponin is negative. Electrolytes including magnesium were all within normal limits. Interrogation of his defibrillator shows that this was an episode of V-tach and he has actually had 2-3 others recently that he was unaware of. IMPRESSION: 1. Ventricular tachycardia with appropriate defibrillator discharge. 2. Ischemic cardiomyopathy. 3. Other problems listed above. PLAN: The patient has been admitted. He will be watched on Telemetry. Cardiology has been consulted to give suggestions regarding antiarrhythmic therapy and the patient will be monitored, managed and treated appropriately. MILI Matthews. MD RUBY DR: TARA/sharri JOB#: [id number] / [id number] DICTATED BY: MILI BELTRAN MD 11/15/20 1327 SIGNED BY: MILI BELTRAN MD 11/16/20 0949 cc: MILI BELTRAN MD ~[id number] Page of MILI BELTRAN MD Mar 06, 2021 15:35
== END 2020-11-17 16:42 | disposition home or self-care (01) | DRG 309 ==
LOC: ER 11:12 → ED HOLD 14:27 → 2 NORTH 18:05
PROVIDERS: ADMIT Family Medicine; ATTEND Family Medicine
PROC: 4B02XSZ Measurement of Cardiac Pacemaker, External Approach (ICD-10-PCS; principal; 2020-11-14)
DX: I47.2 Ventricular tachycardia (principal); I13.0 Hypertensive heart and chronic kidney disease with heart failure and stage 1 through stage 4 chronic kidney disease, or unspecified chronic kidney disease; I50.42 Chronic combined systolic (congestive) and diastolic (congestive) heart failure; I25.5 Ischemic cardiomyopathy; E78.00 Pure hypercholesterolemia, unspecified; E78.5 Hyperlipidemia, unspecified; F17.200 Nicotine dependence, unspecified, uncomplicated; M19.90 Unspecified osteoarthritis, unspecified site; I25.10 Atherosclerotic heart disease of native coronary artery without angina pectoris; I48.0 Paroxysmal atrial fibrillation; J44.9 Chronic obstructive pulmonary disease, unspecified; N18.9 Chronic kidney disease, unspecified; Z95.1 Presence of aortocoronary bypass graft; Z95.810 Presence of automatic (implantable) cardiac defibrillator; Z71.6 Tobacco abuse counseling
CPT/HCPCS: 36415; 71045; 80048; 83735; 84443; 84484; 85025; 93005; 99285; G0378

== ENCOUNTER 2021-02-14 05:45 | Emergency (ER) | payer MEDICARE ==
[~2021-02-14] VITALS: Ht 175.3 cm; Wt 95.5 kg
[2021-02-14 06:23] VITALS: BP 93/55
[2021-02-14] MEDS: NEOMY/BACITR/POLYMYXIN OINT PACKET. TP ONE ×2 (06:30→06:44)
--- NOTE | 2021-02-14 06:36 | PHYS DOC ---
Past Medical History Past Medical History: High Cholesterol, Heart Disease, Hypertension, [place] Past Surgical History: Coronary Bypass Surgery, Pacemaker Additional Past Surgical Histo: defibrilator Smoking Status: Current Every Day Smoker Alcohol Use: Occasionally Drug Use: None General Adult EDM: Chief Complaint: MECHANICAL FALL HPI: HPI: Deondre is a 65-year-old patient with a history of four-vessel CABG, and a impla nted pacemaker/defibrillator; he is on Xarelto, aspirin, clopidogrel. The patient states that he had a mechanical fall yesterday at 1:30 PM which resulted in abrasions on his bilateral anterior knees. Patient denies any loss of consciousness, or injury to any other part of his body. Currently, the patient has his knees wrapped with no blood seeping through the bandages. His is present at bedside, and she states that throughout the past 12 hours he has gone through multiple bandages that have been soaked with blood. The patient states that he is in no pain when sedentary, but says he has mild pain with flexion of his knees. This pain is nonradiating, sharp, and is better when the patient elevates his legs. He does complain of dizziness upon waking up, but says this has been a chronic issue for him for an extended period of time. The patient and his state their main concern is the level of bleeding that the patient underwent, and getting the bleeding to stop. Review of Systems: Review of Systems: Constitutional: Denies fever or chills Eyes: Denies redness or eye pain HENT: Denies nasal congestion or sore throat Respiratory: Denies cough or shortness of breath Cardiovascular: Denies chest pain or palpitations GI: Denies abdominal pain, nausea, or vomiting : Denies dysuria or hematuria Musculoskeletal: Denies back pain or joint pain; reports bilateral knee pain Integument: Denies rash or skin lesions Neurologic: Denies headache, focal weakness or sensory changes Complete systems were reviewed and found to be within normal limits, except as documented in this note. Heart Score: C/O Chest Pain: N/A Current Medications: Current Medications Medications (Trade) Dose Ordered Sig/Angelo Start Time Stop Time Status Last Admin Dose Admin Neomycin/ Polymyxin/ Bacitracin (Triple Antibiotic Ointment) 1 pkt 1X ONCE 02/14/21 06:30 02/14/21 06:31 DC Allergies: Allergies: Allergies Coded Allergies Type Severity Reaction Last Updated Verified No Known Drug Allergies 02/20/14 No Physical Exam: PE: Constitutional: Well developed, well nourished, no acute distress, non-toxic appearance HENT: Normocephalic, atraumatic Eyes: PERRL, EOMI, conjunctiva normal, no discharge Neck: Normal range of motion, no tenderness, supple Lungs & Thorax: No respiratory distress, equal chest rise and fall; sternotomy scar, left infraclavicular pacemaker/defibrillator scar Abdomen: Soft, no tenderness Skin: Warm, dry, no erythema, no rash Back: No tenderness, no CVA tenderness Extremities: Bilateral knee abrasions measure approximately 4 x 4 cm each. Bleeding is tamponaded on the right knee, but there is capillary bleeding continue on the left knee abrasion. Sensation and pulses intact bilaterally. Neurologic: Alert and oriented X 3, normal motor function, normal sensory function, no focal deficits noted Psychologic: Affect normal, judgment normal Current Patient Data: Vital Signs: Vital Signs Date Time Temp Pulse Resp B/P (MAP) Pulse Ox O2 Delivery O2 Flow Rate FiO2 02/14/21 05:50 97.3 60 22 115/56 (75) 94 Room Air 97.3 EKG: EKG: [] Radiology/Procedures: Radiology/Procedures: [] Impression: Patient is a 65-year-old male with an extensive cardiac history, which includes a four-vessel CABG, and an implanted pacemaker/defibrillator. He presents to the emergency room today with bilateral knee abrasions that have been bleeding since 1:30 PM yesterday, after the patient underwent a mechanical fall. The patient is currently on Xarelto, aspirin, and clopidogrel. He denies loss of consciousness. On physical exam, the bleeding is largely tamponaded on both knees, with a small amount of capillary bleeding on the left anterior knee. The patient is hemodynamically stable. At this time, I do not believe laboratory evaluation of the patient's H&H is necessary, given the very superficial abrasions, and the patient's description of the bleeding. The patient's bilateral knees were dressed with triple antibiotic ointment, Telfa dressing, a folded 4 x 4, and an Adryan bandage for pressure. The patient's watched managing process, and explained the process back to me for future dressing changes. At the time of discharge, the patient's bleeding was completely tamponaded; however, the patient understands that because the abrasions are on the flexor surface, the bleeding may continue to a small extent. The patient was instructed to return to the emergency room if bleeding increases, or he develops increasing dizziness, or lightheadedness. Patient stable for discharge with outpatient follow-up with PCP. Discussed findings and plan with patient, who acknowledges understanding and agreement. Course & Med Decision Making: Course & Med Decision Making Pertinent Labs and Imaging studies reviewed. (See chart for details) [] Dragon Disclaimer: Dragon Disclaimer: This electronic medical record was generated, in whole or in part, using a voice recognition dictation system. Departure Departure Impression: Primary Impression: Abrasion of knee, bilateral Additional Impression: Need for tetanus booster Disposition: 01 DC HOME SELF CARE/HOMELESS Condition: STABLE Referrals: MILI BELTRAN MD (PCP) Patient Instructions: Abrasion, [id number], Knee Wraps (Elastic Bandage) and RICE Additional Instructions: Do not soak your wound. You may shower. Clean wound daily with soap and water. Change dressing 2 times daily. Use over the counter antibiotic ointment with each dressing change. Hold direct pressure on any excessive bleeding. Given use of blood thinners you will have some oozing that occurs from the wounds. ELA BERUMEN DO Feb 14, 2021 06:36
[2021-02-14] MEDS ORDERED: DIPH,PERTUSS(ACELL),TET VAC/PF 0.5 ML SYRINGE. VAX IM ONE (06:45)
== END 2021-02-14 07:08 | disposition home or self-care (01) ==
LOC: ER 05:45
DX: S80.211A Abrasion, right knee, initial encounter (principal); S80.212A Abrasion, left knee, initial encounter; E78.00 Pure hypercholesterolemia, unspecified; I11.0 Hypertensive heart disease with heart failure; I25.2 Old myocardial infarction; F17.200 Nicotine dependence, unspecified, uncomplicated; Z95.0 Presence of cardiac pacemaker; Z98.890 Other specified postprocedural states; W18.39XA Other fall on same level, initial encounter; Y93.89 Activity, other specified; Y92.89 Other specified places as the place of occurrence of the external cause; Y99.8 Other external cause status
CPT/HCPCS: 90471; 90715; 99284

== ENCOUNTER → 2021-02-26 | Outpatient (CLI) | payer MEDICARE ==
[2021-02-14 06:23] VITALS: BP 93/55
--- NOTE | 2021-02-26 16:33 | KCIC ---
US RENAL BILAT History: Reason: Chronic Kidney Disease stage III / Spl. Instructions: / History: Comparison: None. Procedure: Transabdominal ultrasound images are obtained of the kidneys and bladder. Findings: Right kidney: measures 10.3 x 3.8 x 5.0 cm. Cortical thinning. No hydronephrosis. Left kidney: measures 10.6 x 4.2 x 5.3 cm. Small left renal cyst measures 1.4 x 1.1 x 1.3 cm. No fol low-up imaging is recommended per consensus recommendations based on imaging criteria. Cortical thinn ing. No hydronephrosis. Urinary bladder: No urinary bladder wall thickening. The IVC is normal caliber. The visualized abdominal aorta is normal caliber. IMPRESSION: 1. Bilateral renal cortical thinning compatible with medical renal disease. Electronically signed by: Reno Fox DO (02/26/2021 4:30 PM) [id number]
== END ==
LOC: KCIC US 10:36
PROVIDERS: ATTEND Internal Medicine Nephrology
DX: N18.30 Chronic kidney disease, stage 3 unspecified (principal)
CPT/HCPCS: 76770

== ENCOUNTER 2021-05-09 14:38 | Emergency (ER) | payer MEDICARE ==
[2021-05-09 11:15] VITALS: BP 66/38
[~2021-05-09 14:38] MED LIST changes: +RIVA10TA PO
--- NOTE | 2021-05-09 15:04 | PHYS DOC ---
Past Medical History Past Medical History: High Cholesterol, Heart Disease, Hypertension, [place] Past Surgical History: Coronary Bypass Surgery, Pacemaker Additional Past Surgical Histo: defibrilator Smoking Status: Current Every Day Smoker Alcohol Use: Occasionally Drug Use: None General Adult EDM: Chief Complaint: CPR/FULL ARREST HPI: HPI: Patient is a 65 year old male who was in cardiac arrest [place]. Patient was admitted here on May 07, was taken to the cardiac catheterization, was found to be hypotensive. Patient had EF of 20%. Patient was admitted to ICU, he was on 4 different pressor medications but he was still hypotensive. He was taken to the cardiac cath this morning for balloon pump.. He was still very hypotensive. Dr. Artis, rocket [employer] plant supervisor contacted [facility], was going to transfer the patient here for further treatment. Patient was on BiPAP in the ICU, was intubated prior to transfer. It was reported that patient had very faint pulse, was still hypotensive. Patient was taken out of the ICU, EMS AND ICU NURSE were taken patient to , was just loading him into the ambulance [place] the [place] here when the ICU nurse decided to listen to his heart again and did not detect a heart tone so CODE BLUE was activated. Patient was resuscitated per ACLS protocol. Patient was taken to ER room. He was asystole, no pulse, unresponsive, on the ventilator, balloon pump in place, no detectable blood pressure. Review of Systems: Review of Systems: Unable to obtain due to patient condition Heart Score: C/O Chest Pain: N/A Risk Factors: Risk Factors: DM, Current or recent (<one month) smoker, HTN, HLP, family history of CAD, obesity. Risk Scores: Score 0 - 3: 2.5% MACE over next 6 weeks - Discharge Home Score 4 - 6: 20.3% MACE over next 6 weeks - Admit for Clinical Observation Score 7 - 10: 72.7% MACE over next 6 weeks - Early Invasive Strategies Allergies: Allergies: Allergies Coded Allergies Type Severity Reaction Last Updated Verified No Known Drug Allergies 02/20/14 No Physical Exam: PE: Constitutional: Well developed, well nourished, unresponsive HENT: Normocephalic, atraumatic, bilateral external ears normal, ET tube in place Eyes: Fixed, nonreactive Neck: Trachea midline, no crepitus, Cardiovascular: No pulse, asystole Lungs & Thorax: Bilateral breath sounds clear to auscultation by mechanical ventilation. Abdomen: NO BOWEL SOUND, soft, no masses, no pulsatile masses. [] Skin: COLD, CYANOSIS. Back: ATRAUMATIC. Extremities: COLD, NO PULSE, NO EVIDENCE OF INJURY, BALLOON PUMP IN LEFT GROIN Neurologic: UNRESPONSIVE.... Psychologic: NOT ABLE TO OBTAIN DUE TO CONDITION EKG: EKG: [] Radiology/Procedures: Radiology/Procedures: [] Course & Med Decision Making: Course & Med Decision Making Pertinent Labs and Imaging studies reviewed. (See chart for details) Patient was resuscitated per ACLS protocol, no pluse, he was in asystole Patient was pronounced at 1153 by this physician, Dr. Beltran will sign the certificate. Dragon Disclaimer: Dragon Disclaimer: This electronic medical record was generated, in whole or in part, using a voice recognition dictation system. Departure Departure Impression: Primary Impression: Cardiac arrest Disposition: 20 Condition: Referrals: MILI BELTRAN MD (PCP) NICK VALLE DO May 09, 2021 15:04
== END 2021-05-09 14:53 ==
LOC: ER 14:41
DX: I46.9 Cardiac arrest, cause unspecified (principal); I11.9 Hypertensive heart disease without heart failure; E78.00 Pure hypercholesterolemia, unspecified; I25.2 Old myocardial infarction; F17.200 Nicotine dependence, unspecified, uncomplicated; Z95.1 Presence of aortocoronary bypass graft; Z95.5 Presence of coronary angioplasty implant and graft
CPT/HCPCS: 99285-25